=== PATIENT | female | born 1990 | race African-American/Black ===

== ENCOUNTER 2018-12-21 13:25 | Emergency (ER) | payer OTHER ==
[2018-12-21 13:31] VITALS: TEMP 98; BMI 22.9
[2018-12-21] MEDS ORDERED: ACETAMINOPHEN 1000 MG/100 ML VIAL (NON FORMULARY) IVPB ONE (13:35)
[2018-12-21] MEDS ORDERED: METOCLOPRAMIDE HCL INJECTION 10 MG/2 ML VIAL IVPB ONE (13:35)
[2018-12-21] MEDS ORDERED: SODIUM CHLORIDE 1,000 ML IV STA (13:35)
[2018-12-21] MEDS ORDERED: METOCLOPRAMIDE HCL INJECTION 10 MG/2 ML VIAL ONE (14:02)
[2018-12-21] MEDS ORDERED: ACETAMINOPHEN INJECTION 100 ML IVPB ONE (14:02)
--- NOTE | 2018-12-21 14:35 | PDOC ---
History of Present Illness - General History Source: Patient Exam Limitations: No Limitations - History of Present Illness Initial Comments: 12/21/18 14:09 38-year-old female currently 7 weeks with history of migraines presents the ED with constant throbbing pressure to her forehead along with nausea. Patient states normally takes injections monthly but due to her has not taken it and now with this discomfort past 2 days. Patient states is due to see the neurologist on Saturday to discuss other treatments but states the pain is unbearable and is requesting medication for the above. Patient denies visual changes, dizziness, chest pain, shortness of breath abdominal pain dysuria, or vaginal discharge Timing/Duration: reports: other (2 days) Associated Symptoms: reports: nausea/vomiting, other <Courtney Rodriguez - Last Filed: 12/21/18 15:31> <Hanane Javier - Last Filed: 12/23/18 12:28> - General Chief Complaint: Migraine Headache Stated Complaint: HEADACHE Time Seen by Provider: 12/21/18 13:33 Past History - Past Medical History COPD: No Other medical history: migraines - Psycho Social/Smoking Cessation Hx Smoking History: Never smoked Patient Lives Alone: No Lives with/in: spouse/SO <Courtney Rodriguez - Last Filed: 12/21/18 15:31> <Hanane Javier - Last Filed: 12/23/18 12:28> - Past Medical History Allergies/Adverse Reactions: Allergies Allergy/AdvReac Type Severity Reaction Status Date / Time No Known Allergies Allergy Verified 12/21/18 13:31 Review of Systems - Review of Systems Able to Perform ROS?: Yes Constitutional: No: Symptoms Reported HEENTM: No: Symptoms Reported Respiratory: No: Symptoms reported Cardiac (ROS): No: Symptoms Reported ABD/GI: Yes: Nausea : No: Symptoms Reported Musculoskeletal: No: Symptoms Reported Integumentary: No: Symptoms Reported Neurological: Yes: Headache. No: Numbness, Weakness, Dizziness <Courtney Rodriguez - Last Filed: 12/21/18 15:31> *Physical Exam - Vital Signs Last Vital Signs Temp Pulse Resp BP Pulse Ox 98 F 80 18 117/71 99 12/21/18 13:29 12/21/18 13:29 12/21/18 13:29 12/21/18 13:29 12/21/18 13:29 - Physical Exam General Appearance: Yes: Nourished, Appropriately Dressed. No: Apparent Distress HEENT: positive: EOMI, NORMAN. negative: Pale Conjunctivae Neck: positive: Normal Thyroid Respiratory/Chest: positive: Lungs Clear, Normal Breath Sounds. negative: Respiratory Distress, Accessory Muscle Use Cardiovascular: positive: Regular Rhythm, Regular Rate. negative: Murmur Gastrointestinal/Abdominal: positive: Soft. negative: Tenderness Integumentary: positive: Normal Color, Warm, Moist Neurologic: positive: Motor Strength 5/5 (Ambulatory) <Courtney Rodriguez - Last Filed: 12/21/18 15:31> - Vital Signs Last Vital Signs Temp Pulse Resp BP Pulse Ox 98 F 80 18 117/71 99 12/21/18 13:29 12/21/18 13:29 12/21/18 13:29 12/21/18 13:29 12/21/18 13:29 <Hanane Javier - Last Filed: 12/23/18 12:28> ED Treatment Course - Medications Given in the ED: ED Medications Discontinued Medications Generic Name Dose Route Start Last Admin Trade Name Freq PRN Reason Stop Dose Admin Acetaminophen 1,000 mg 12/21/18 13:35 12/21/18 14:27 Ofirmev Injection - IVPB 12/21/18 13:36 1,000 mg ONCE ONE Administration Metoclopramide HCl 10 mg 12/21/18 13:35 12/21/18 14:27 Reglan Injection - IVPB 12/21/18 13:36 10 mg ONCE ONE Administration <Courtney Rodriguez - Last Filed: 12/21/18 15:31> - Medications Given in the ED: ED Medications Discontinued Medications Generic Name Dose Route Start Last Admin Trade Name Freq PRN Reason Stop Dose Admin Acetaminophen 1,000 mg 12/21/18 13:35 12/21/18 14:27 Ofirmev Injection - IVPB 12/21/18 13:36 1,000 mg ONCE ONE Administration Sodium Chloride 1,000 mls @ 1,000 mls/hr 12/21/18 13:35 12/21/18 14:26 Normal Saline - IV 12/21/18 14:34 1,000 mls/hr ASDIR STA Administration Metoclopramide HCl 10 mg 12/21/18 13:35 12/21/18 14:27 Reglan Injection - IVPB 12/21/18 13:36 10 mg ONCE ONE Administration <Hanane Javier - Last Filed: 12/23/18 12:28> Medical Decision Making - Medical Decision Making 12/21/18 14:13 Chief complaint: Nausea with throbbing pressure for the past 2 days unrelieved with Tylenol. Patient normally takes injections monthly given by the neurologist for headache. Patient currently 7 weeks . Exam: Vital signs stable no active vomiting no acute findings on exam Plan: IV Tylenol IV fluids and Reglan ordered we will reevaluate shortly 12/21/18 15:31 Patient states improvement of discomfort. Patient will go home with recommendations to take Tylenol for discomfort. Patient also to see the neurologist on Saturday as scheduled. <Courtney Rodriguez - Last Filed: 12/21/18 15:31> - Medical Decision Making The patient was seen and evaluated in conjunction with midlevel provider under my direct supervision, ancillary studies were reviewed. I agree with the plan as outlined with BONIFACIO Rodriguez. HPI, workup/dispo as outlined. VS reviewed, wnl. given appropriate analgesia. anticipate discharge, pcp followup, return precautions 12/21/18 15:38 <Hanane Javier - Last Filed: 12/23/18 12:28> Discharge - Discharge Information Problems reviewed: Yes <Courtney Rodriguez - Last Filed: 12/21/18 15:31> - Admission No <Hanane Javier - Last Filed: 12/23/18 12:28> - Discharge Information Clinical Impression/Diagnosis: Headache Condition: Improved Disposition: HOME - Patient Discharge Instructions Patient Printed Discharge Instructions: DI for Migraine Additional Instructions: Take Tylenol 1000 mg tonight and continue to take every 8 hours for discomfort. Advised to rest drink plenty of fluids and stay in a cold quiet environment. Please follow-up with your neurologist. Return to ED if symptoms worsen despite above recommendations.
[2018-12-21 16:55] VITALS: BP 120/70; PULSE 72
== END 2018-12-21 16:40 | disposition home or self-care (01) ==
LOC: JER 13:25
PROC: 3E033NZ Introduction of Analgesics, Hypnotics, Sedatives into Peripheral Vein, Percutaneous Approach (ICD-10-PCS; principal; 2018-12-21)
PROC: 3E033GC Introduction of Other Therapeutic Substance into Peripheral Vein, Percutaneous Approach (ICD-10-PCS; 2018-12-21)
DX: O26.891 Other specified pregnancy related conditions, first trimester (principal); O99.351 Diseases of the nervous system complicating pregnancy, first trimester; G43.909 Migraine, unspecified, not intractable, without status migrainosus; Z3A.01 Less than 8 weeks gestation of pregnancy
CPT/HCPCS: 96374; 96375; 99281-25; J0131; J7030

== ENCOUNTER 2019-01-04 14:13 | Emergency (ER) | payer OTHER ==
[2019-01-04 14:24] VITALS: BP 101/57; PULSE 70; TEMP 98.4; BMI 22.9
[2019-01-04] MEDS ORDERED: SODIUM CHLORIDE 1,000 ML IV STA (14:44)
[2019-01-04] MEDS ORDERED: METOCLOPRAMIDE HCL INJECTION 10 MG/2 ML VIAL IVPB ONE (14:44)
[2019-01-04] MEDS ORDERED: ACETAMINOPHEN 1000 MG/100 ML VIAL (NON FORMULARY) IVPB ONE (14:44)
--- NOTE | 2019-01-04 15:09 | PDOC ---
History of Present Illness - General Chief Complaint: Headache Stated Complaint: 9 W PREG/HEADACHE Time Seen by Provider: 01/04/19 14:29 History Source: Patient Exam Limitations: No Limitations Past History - Past Medical History Allergies/Adverse Reactions: Allergies Allergy/AdvReac Type Severity Reaction Status Date / Time No Known Allergies Allergy Verified 01/04/19 14:24 Home Medications: Ambulatory Orders Pnv No.95/Ferrous Fum/Folic AC [ Caplet] 1 each PO 01/04/19 COPD: No Other medical history: MIGRAINES - Psycho Social/Smoking Cessation Hx Smoking History: Never smoked *Physical Exam - Vital Signs Last Vital Signs Temp Pulse Resp BP Pulse Ox 98.4 F 70 18 101/57 L 98 01/04/19 14:20 01/04/19 14:20 01/04/19 14:20 01/04/19 14:20 01/04/19 14:20 - Physical Exam General Appearance: No: Apparent Distress HEENT: positive: NORMAN Gastrointestinal/Abdominal: positive: Normal Bowel Sounds, Soft. 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 Was seen 2 weeks ago for similar complaint. States she followed up with her neurologist, who gave her Magnesium, but states that has not been helping. States Aimovig normally helps with her migraines, but as she is , she was told by her neurologist that the only medication safe for her is either Tylenol or Magnesium. Denies fever, URI sxs, sob, cp, abd pain, vomiting, vaginal bleeding, visual/gait changes. Migraine Plan: IVF, Tylenol, Reglan, reassess 01/04/19 15:05 Patient feeling much better on reassessment stable for dc 01/04/19 16:36 Discharge - Discharge Information Problems reviewed: Yes Clinical Impression/Diagnosis: Migraine Qualifiers: Migraine type: unspecified Status migrainosus presence: without status migrainosus Intractability: not intractable Qualified Code(s): G43.909 - Migraine, unspecified, not intractable, without status migrainosus Condition: Improved Disposition: HOME - Admission No - Additional Discharge Information Prescription Drug Monitoring Program (I-STOP) results: I-STOP not reviewed - Follow up/Referral Referrals: ON STAFF,NOT [Primary Care Provider] - - Patient Discharge Instructions Patient Printed Discharge Instructions: DI for Migraine Additional Instructions: Thank you for choosing [facility]. It was a pleasure taking care of you. Recommend follow-up with your neurologist for further management of your migraines Also recommend follow-up with your [employer]IC [employer]ER Return to the Emergency Department if your symptoms worsen or persist, you have fever, shortness of breath, chest pain, severe abdominal pain, vomiting, weakness of extremities (arms and/or legs), changes in vision or walking or other concerning symptoms. - Post Discharge Activity
[2019-01-04] MEDS ORDERED: METOCLOPRAMIDE HCL INJECTION 10 MG/2 ML VIAL ONE (15:22)
[2019-01-04] MEDS ORDERED: ONDANSETRON 4 MG/2 ML VIAL ONE (15:23)
== END 2019-01-04 16:54 | disposition home or self-care (01) ==
LOC: JERFT 14:13
PROC: 3E033NZ Introduction of Analgesics, Hypnotics, Sedatives into Peripheral Vein, Percutaneous Approach (ICD-10-PCS; principal; 2019-01-04)
PROC: 3E033GC Introduction of Other Therapeutic Substance into Peripheral Vein, Percutaneous Approach (ICD-10-PCS; 2019-01-04)
DX: O26.891 Other specified pregnancy related conditions, first trimester (principal); O99.89 Other specified diseases and conditions complicating pregnancy, childbirth and the puerperium; G43.909 Migraine, unspecified, not intractable, without status migrainosus; Z3A.09 9 weeks gestation of pregnancy; O90.89 Other complications of the puerperium, not elsewhere classified
CPT/HCPCS: 99282-25; J0131; J7030

== ENCOUNTER 2019-04-15 10:57 | Emergency (ER) | payer OTHER ==
[2019-04-15 11:09] VITALS: BMI 23.9
[2019-04-15] MEDS ORDERED: SODIUM CHLORIDE 0.9% 500 ML INFUS.BAG IV ONE (11:22)
[2019-04-15] MEDS ORDERED: ONDANSETRON 4 MG/2 ML VIAL IVPUSH ONE (11:22)
[2019-04-15] MEDS ORDERED: ACETAMINOPHEN 1000 MG/100 ML VIAL (NON FORMULARY) IVPB ONE (11:22)
--- NOTE | 2019-04-15 11:27 | PDOC ---
History of Present Illness - General Chief Complaint: Migraine Headache Stated Complaint: MIGRANE Time Seen by Provider: 04/15/19 11:20 - History of Present Illness Initial Comments: 04/15/19 11:27 CHIEF COMPLAINT: migraine HISTORY OF PRESENT ILLNESS: 28 yo F with hx of migraines presents to ED with migraine sinec 7 am. Patient reports taking 1g of Tylenol this morning without relief. Patient states this migraine feels exactly hte same as her previous migraines but is not going away. Patient denies any abdominal pain, vaginal bleeding, SOB, chest pain. LMP october. No recent travel or sick contacts. PAST MEDICAL HISTORY: Denies past medical history FAMILY HISTORY: Denies SOCIAL HISTORY: Denies tobacco, alcohol, illicit drug use. SURGICAL HISTORY: Denies ALLERGIES: No known drug allergies REVIEW OF SYSTEMS General/Constitutional: Denies fever or chills. Denies weakness, weight change. HEENT: Denies change in vision. Denies ear pain or discharge. Denies sore throat. Cardiovascular: Denies chest pain or shortness of breath. Respiratory: Denies cough, wheezing, or hemoptysis. Gastrointestinal: Denies nausea, vomiting, diarrhea or constipation. Denies rectal bleeding. Genitourinary: Denies dysuria, frequency, or change in urination. Musculoskeletal: Denies joint or muscle swelling or pain. Denies neck or back pain. Skin and breasts: Denies rash or easy bruising. Neurologic: Headache, photophobia. Psychiatric: Denies depression or anxiety. PHYSICAL EXAM General Appearance: Well-appearing, appropriately dressed. No apparent distress , no intoxication. HEENT: EOMI, PERRLA, normal ENT inspection, normal voice, TMs normal, pharynx normal. No conjunctival pallor. No photophobia, scleral icterus. Neck: Supple. Trachea midline. No tenderness, rigidity, carotid bruit, stridor , lymphadenopathy, or thyromegaly. Respiratory/Chest: Lungs CTAB. No shortness of breath, chest tenderness, respiratory distress, accessory muscle use. No crackles, rales, rhonchi, stridor , wheezing, dullness Cardiovascular: RRR. S1, S2. No JVD, murmur, bradycardia, tachycardia. Vascular Pulses: Dorsalis-Pedis (R): 2+, Dorsalis-Pedis (L): 2+ Gastrointestinal/Abdominal: Normal bowel sounds. Abdomen soft, non-distended. No tenderness or rebound tenderness. No organomegaly, pulsatile mass, guarding , hernia, hepatomegaly, splenomegaly. Lymphatic: No adenopathy, tenderness. Musculoskeletal/Extremities: Normal inspection. FROM of all extremities, normal capillary refill. Pelvis Stable. No CVA tenderness. No tenderness to extremities, pedal edema, swelling, erythema or deformity. Integumentary: Appropriate color, dry, warm. 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 Fully oriented, alert. Appropriate mood/affect. Motor strength 5/5. No appreciable EOM palsy, facial droop or sensory deficit. Past History - Past Medical History Allergies/Adverse Reactions: Allergies Allergy/AdvReac Type Severity Reaction Status Date / Time No Known Allergies Allergy Verified 04/15/19 11:08 Home Medications: Ambulatory Orders Pnv No.95/Ferrous Fum/Folic AC [ Caplet] 1 each PO 01/04/19 COPD: No - Immunization History Immunization Up to Date: Yes - Psycho Social/Smoking Cessation Hx Smoking History: Never smoked Have you smoked in the past 12 months: No Information on smoking cessation initiated: No Hx Alcohol Use: No Drug/Substance Use Hx: No *Physical Exam - Vital Signs Last Vital Signs Temp Pulse Resp BP Pulse Ox 98.4 F 88 18 115/57 L 100 04/15/19 11:05 04/15/19 11:05 04/15/19 11:05 04/15/19 11:05 04/15/19 11:05 Medical Decision Making - Medical Decision Making 04/15/19 12:21 28 yo F with hx of migraines presents to ED with migraine since 7 am. Patient denies any abdominal/ complaints and has been to this ED multiple times for similar symptoms. Will treat with IVF, Tylenol, Zofran. 04/15/19 13:25 Patient reassessed after administration of medications; at this time pt states her headache has resolved . Patient will be sent to L&D for OB clearance. Advised pt to f/u with neurologist for continued monitoring of migraines during her . Advised pt of signs and symptoms for return to ER; patient verbalized understanding and agrees to plan. Discharge - Discharge Information Problems reviewed: Yes Clinical Impression/Diagnosis: Migraine Condition: Stable - Follow up/Referral - Patient Discharge Instructions Patient Printed Discharge Instructions: DI for Migraine - Post Discharge Activity Work/Back to School Note: Back to Work
[2019-04-15] MEDS ORDERED: ACETAMINOPHEN INJECTION 100 ML IVPB ONE (11:50)
[2019-04-15] MEDS ORDERED: ONDANSETRON 4 MG/2 ML VIAL ONE (11:50)
[2019-04-15 12:42] LABS: URINE APPEARANCE CLOUDY; URINE BILIRUBIN NEGATIVE (NEGATIVE); URINE COLOR YELLOW; URINE GLUCOSE (UA) NEGATIVE (NEGATIVE); URINE KETONE NEGATIVE (NEGATIVE); URINE LEUK ESTERASE NEGATIVE (NEGATIVE); URINE NITRITE NEGATIVE (NEGATIVE); URINE PROTEIN NEGATIVE (NEGATIVE); URINE UROBILINOGEN 0.2 mg/dL (0.2-1.0)
[2019-04-15 14:33] VITALS: PULSE 81; TEMP 98.2
[2019-04-15 14:35] VITALS: BP 105/73
== END 2019-04-15 14:44 | disposition home or self-care (01) ==
LOC: JER 10:57
PROC: 3E033NZ Introduction of Analgesics, Hypnotics, Sedatives into Peripheral Vein, Percutaneous Approach (ICD-10-PCS; principal; 2019-04-15)
PROC: 3E033GC Introduction of Other Therapeutic Substance into Peripheral Vein, Percutaneous Approach (ICD-10-PCS; 2019-04-15)
DX: G43.909 Migraine, unspecified, not intractable, without status migrainosus (principal)
CPT/HCPCS: 81003; 96374; 96375; 99284-25; J0131

== ENCOUNTER 2022-02-04 19:21 | Emergency (ER) | payer OTHER ==
[2022-02-04 19:37] VITALS: TEMP 98; BMI 25.0
[2022-02-04] MEDS ORDERED: SODIUM CHLORIDE 0.9% 500 ML INFUS.BAG IV ONE (20:08)
[2022-02-04 20:58] LABS: BASO % 0.7 % (0-2.0); HEMATOCRIT 29.4 % (32.4-45.2); HEMOGLOBIN 8.8 GM/dL (10.7-15.3); LYMPH % 7.6 % (8-40); MCHC 29.8 g/dl (32.0-36.0); MEAN CELL VOLUME 67.2 fl (80-96); MEAN PLT VOLUME 8.5 fl (7.5-11.1); MONO % 4.2 % (3.8-10.2); NEUT % 87.5 % (42.8-82.8); PLATELET COUNT 309 10^3/uL (134-434); RBC 4.38 M/mm3 (3.60-5.2); RDW 20.3 % (11.6-15.6); WHITE BLOOD COUNT 7.5 K/mm3 (4.0-10.0)
[2022-02-04] MEDS ORDERED: ONDANSETRON 4 MG/2 ML VIAL IVPUSH ONE (21:10)
[2022-02-04 21:22] LABS: ALBUMIN 3.6 g/dl (3.4-5.0); BLOOD UREA NITROGEN 8.3 mg/dL (7-18)
[2022-02-04 21:25] LABS: CREATININE 0.6 mg/dL (0.55-1.3)
[2022-02-04 21:27] LABS: ANISOCYTOSIS 3+; BILIRUBIN,TOTAL 0.5 mg/dL (0.2-1); MACROCYTOSIS 0; TARGET CELLS 2+; TOT PROT 7.2 g/dl (6.4-8.2)
[2022-02-04] MEDS ORDERED: ONDANSETRON 4 MG/2 ML VIAL ONE (21:30)
[2022-02-04 22:35] VITALS: BP 124/79; PULSE 92; RESP 20
== END 2022-02-04 22:35 | disposition home or self-care (01) ==
LOC: JER 19:21
PROC: 3E033GC Introduction of Other Therapeutic Substance into Peripheral Vein, Percutaneous Approach (ICD-10-PCS; principal; 2022-02-04)
DX: F12.920 Cannabis use, unspecified with intoxication, uncomplicated (principal)
CPT/HCPCS: 36415; 80053; 82962; 84703; 85025; 99284-25